=== PATIENT | male | born 1965 | race Caucasian/White ===

== ENCOUNTER 2016-07-24 11:51 | Emergency (ER) | payer MEDICARE ==
[~2016-07-24] VITALS: Ht 170.2 cm; Wt 59.0 kg
[2016-07-24 12:16] VITALS: BP 120/80
[2016-07-24] MEDS ORDERED: Ketorolac 60mg Inj IM ONE (13:00)
[2016-07-24] MEDS ORDERED: Lidocaine 1% MPF 10mg/ml 5ml INJ ONE (13:00)
--- NOTE | 2016-07-24 13:22 | Emergency Room Report ---
History of Present Illness General Chief Complaint: Skin Rash/Abscess Source: Patient (EMILY [email or web address]) Present Illness HPI 51-year-old male complains of abscess on left calf associated symptoms include red swollen tender bump on left calf with pustular drainage. No provoking symptoms or relieving factors states it is tender to touch. States that he may have been something that opened his skin that been got infected 2 weeks ago. Denies any fever, chills, nausea, vomiting, or rash. ([email or web address]) Allergies: Coded Allergies: No Known Allergies (Unverified , 07/24/16) Patient History Immunizations: other - Patient is unaware of immunization status Reviewed Nursing Documentation: PMH: Agreed, PSxH: Agreed (EMILY ROACH) Nursing Documentation-PMH Hx Cardiac Problems: No Hx Hypertension: Yes (EMILY [email or web address]) Review of Systems All Other Systems: negative except mentioned in HPI ([email or web address]) Physical Exam Vital Signs Date Time Temp Pulse Resp B/P Pulse Ox O2 Delivery O2 Flow Rate FiO2 07/24/16 12:10 98.2 82 16 120/80 98 Room Air Sp02 EP Interpretation: reviewed, normal General Appearance: no apparent distress, alert, GCS 15, non-toxic Head: normocephalic, atraumatic ENT: hearing grossly normal, no angioedema, normal voice Neck: full range of motion, supple/symm/no masses Respiratory: chest non-tender, lungs clear, normal breath sounds, speaking full sentences Cardiovascular #1: regular rate, rhythm, no edema Cardiovascular #2: 2+ dorsalis pedis (R), 2+ dorsalis pedis (L) Musculoskeletal: back normal, gait/station normal, normal range of motion Neurologic: alert, oriented x3, responsive, motor strength/tone normal, sensory intact, speech normal Psychiatric: judgement/insight normal, memory normal, mood/affect normal, no suicidal/homicidal ideation Skin: normal color, no rash, warm/dry, well hydrated, other - left calf with indurated fluctulent mass with central cresting TTP w/ local erythema w/o streaking. Lymphatic: no adenopathy (EMILY [email or web address].AAura) Procedures Incision and Drainage Incision and Drainage : Consent: Verbal Blade Size: 11 I & D Procedure: betadine prep Wound Location: lower extremity Wound's Depth, Shape: superficial Wound Explored: contaminated Irrigated w/ Saline (ccs): 50 Anesthesia: 1% Lidocaine Volume Anesthetic (ccs): 5 Splint Applied?: No Patient Tolerated: Well Complications: None (EMILY ROACH) Medical Decision Making PA Attestation Dr. Smith is my supervising physician with whom patient management has been discussed with. (EMILY ROACH) Diagnostic Impression: Primary Impression: Abscess ER Course Pt. presents to the ED c/o bump on leg Ddx considered but are not limited to abscess, cellulitis, insect bite Vital signs: are WNL, pt. is afebrile H&PE are most consistent with abscess ORDERS: Toradol 60 ED INTERVENTIONS: I&D. DISCHARGE: At this time pt. is stable for d/c to home. Will provide printed patient care instructions, and any necessary prescriptions. Care plan and follow up instructions have been discussed with the patient prior to discharge. ([email or web address]) Last Vital Signs Date Time Temp Pulse Resp B/P Pulse Ox O2 Delivery O2 Flow Rate FiO2 07/24/16 12:10 98.2 82 16 120/80 98 Room Air ([email or web address]) Last Vital Signs Date Time Temp Pulse Resp B/P Pulse Ox O2 Delivery O2 Flow Rate FiO2 07/24/16 15:12 98.2 82 16 120/80 98 Room Air (Fede Smith M.D.) Disposition: HOME, SELF-CARE Condition: Improved Scripts Naproxen* (NAPROXEN*) 500 Mg Tablet 500 MG ORAL TWICE A WEEK, #20 TAB 0 Refills Prov: EMILY ROACH P.A. 07/24/16 Trimethoprim/Sulfamethoxazole 160/800* (BACTRIM DS TABLET*) 1 Each Tablet 1 TAB ORAL TWICE A DAY for 10 Days, #14 TAB Prov: EMILY ROACH P.A. 07/24/16 Cephalexin* (KEFLEX*) 500 Mg Capsule 500 MG ORAL EVERY 12 HOURS, #14 CAP 0 Refills Prov: EMILY ROACH P.A. 07/24/16 Referrals: NON PHYSICIAN (PCP) EMILY ROACH 29, 2017 13:22 Fede Smith M.D. Jul 27, 2016 06:57
[2016-07-24] MEDS ORDERED: CEPHALEXIN500 MG ORAL (13:57)
[2016-07-24] MEDS ORDERED: BACTRIM DS TAB1 EAC1 ORAL (13:57)
[2016-07-24] MEDS ORDERED: NAPROXEN500 M2 ORAL (13:57)
[2016-07-24 14:27] VITALS: BP 119/73
[2016-07-24 15:12] VITALS: BP 120/80
== END 2016-07-24 15:12 | disposition home or self-care (01) ==
LOC: EMR 12:55
DX: L02.416 Cutaneous abscess of left lower limb (principal); I10 Essential (primary) hypertension
CPT/HCPCS: 10060; 96372

== ENCOUNTER 2017-03-07 19:37 | Emergency (ER) | payer MEDICARE ==
[~2017-03-07] VITALS: Ht 172.7 cm; Wt 77.1 kg
[~2017-03-07 19:37] MED LIST: BACTRIM DS TAB1 EAC1 ORAL; CEPHALEXIN500 MG ORAL; NAPROXEN500 M2 ORAL
[2017-03-07 19:45] VITALS: BP 133/91
[2017-03-07] MEDS ORDERED: ALBUTEROL SULF8.5 GM INH (19:49)
[2017-03-07] MEDS ORDERED: ADVAIR HFA 115-12 GM INH (19:49)
[2017-03-07] MEDS ORDERED: HYDROCHLOROTH12.5 M2 ORAL (19:49)
[2017-03-07] MEDS ORDERED: BENAZEPRIL HCL40 MG ORAL (19:49)
[2017-03-07] MEDS ORDERED: Bacitracin Oint UD TOPIC ONE (20:15)
[2017-03-07] MEDS ORDERED: BACTRIM DS TAB1 EAC1 ORAL (20:26)
[2017-03-07] MEDS ORDERED: CEPHALEXIN500 MG ORAL (20:26)
[2017-03-07 20:39] VITALS: BP 127/85
--- NOTE | 2017-03-07 22:16 | Emergency Room Report ---
History of Present Illness General Chief Complaint: Skin Rash/Abscess Source: Patient Present Illness HPI The patient is a 52-year-old male presenting for possible skin infection. States that he noticed a red lesion on the left inner thigh one week prior which has been growing in size. He states that he popped it at home and noticed a white discharge which recollected the next day. Pain is a 5/10 dull ache and does not radiate. He denies any fever or chills. He denies other symptoms Allergies: Coded Allergies: No Known Allergies (Unverified , 07/24/16) Patient History Past Medical History: see triage record Pertinent Family History: none Reviewed Nursing Documentation: PMH: Agreed, PSxH: Agreed Nursing Documentation-PMH Past Medical History: No History, Except For Hx Cardiac Problems: No - HIV Hx Hypertension: Yes Hx Asthma: Yes Review of Systems All Other Systems: negative except mentioned in HPI Physical Exam Vital Signs Date Time Temp Pulse Resp B/P (MAP) Pulse Ox O2 Delivery O2 Flow Rate FiO2 03/07/17 19:43 97.9 86 16 133/91 99 Room Air Sp02 EP Interpretation: reviewed, normal General Appearance: no apparent distress, alert, GCS 15, non-toxic Head: normocephalic, atraumatic Eyes: bilateral eye normal inspection, bilateral eye PERRL Musculoskeletal: back normal, gait/station normal, normal range of motion, non- tender Neurologic: alert, oriented x3, responsive, motor strength/tone normal, sensory intact, speech normal Psychiatric: judgement/insight normal, memory normal, mood/affect normal, no suicidal/homicidal ideation Skin: other - 3 cm in diameter circular abscess to L inner thigh. Central scab. No fluctuance. TTP Lymphatic: no adenopathy Medical Decision Making PA Attestation Dr. Harmon is my supervising physician. Patient management was discussed with my supervising physician Diagnostic Impression: Primary Impression: Abscess ER Course The patient is a 52-year-old male presenting for possible skin infection Differential diagnoses considered but not limited to: abscess, cellulitis, insect bite PE: NAD. Afebrile. There is a drained abscess of the L inner thigh. TTP. Central scab. No fluctuance. The area is cleaned and bacitracin applied with a dressing. The patient will be discharged home with a prescription for Bactrim DS and Keflex. ER precautions given. He will keep the area clean and dry. He will not perform drainage at home. Last Vital Signs Date Time Temp Pulse Resp B/P (MAP) Pulse Ox O2 Delivery O2 Flow Rate FiO2 03/07/17 20:39 97.9 82 20 127/85 99 Room Air Status: improved Disposition: HOME, SELF-CARE Condition: Improved Scripts Trimethoprim/Sulfamethoxazole 160/800* (BACTRIM DS TABLET*) 1 Each Tablet 1 TAB ORAL TWICE A DAY, #14 TAB Prov: ARTIS CHIRINOS 03/07/17 Cephalexin* (KEFLEX*) 500 Mg Capsule 500 MG ORAL EVERY 12 HOURS, #14 CAP 0 Refills Prov: ARTIS CHIRINOS.Carri. 03/07/17 Patient Instructions: Abscess Additional Instructions: I discussed my findings with the patient. All questions and concerns have been answered. Treatment and medication compliance have been addressed. I advised the patient that they need to follow up with PMD in 3-5 days. Return to ED if symptoms worsen, new symptoms arise, or if needed for any reason. Patient verbalized understanding of discharge instructions. ARTIS CHIRINOS Mar 07, 2017 22:16
== END 2017-03-07 20:39 | disposition home or self-care (01) ==
LOC: EMR 20:14
DX: L02.416 Cutaneous abscess of left lower limb (principal); I10 Essential (primary) hypertension
CPT/HCPCS: 99284

== ENCOUNTER 2017-09-25 14:59 | Emergency (ER) | payer MEDICARE, OTHER ==
[~2017-09-25] VITALS: Ht 177.8 cm; Wt 74.8 kg
[~2017-09-25 14:59] MED LIST changes: +ADVAIR HFA 115-12 GM INH; +ALBUTEROL SULF8.5 GM INH; +BENAZEPRIL HCL40 MG ORAL; +HYDROCHLOROTH12.5 M2 ORAL
[2017-09-25] MEDS ORDERED: Tetanus/Diptheria/Pertussis Vaccine 0.5ml Syr IM ONE (15:15)
[2017-09-25 15:16] VITALS: BP 103/68
[2017-09-25] MEDS ORDERED: Bacitracin Oint UD TOPIC ONE (15:45)
--- NOTE | 2017-09-25 16:21 | Emergency Room Report ---
History of Present Illness General Chief Complaint: Skin Rash/Abscess Present Illness HPI 52-year-old male presents to the emergency department complaining of several abscesses on the left forearm since last Monday. Patient reports pain is 9 out of 10 in severity reports some erythema. Patient states that one of the abscesses popped and drained and has healed on its own. Patient states that he has a history of HIV he takes his medications regularly has bilateral load is undetectable and his CD4 count is well above 800. Patient reports history of abscesses in the past. Patient denies IV drug use. Denies fevers, chills, nausea, vomiting. He reports he has a history to metals and he was cleaning near [place]link fence when he was punctured by a portion of it. Patient states he believes that this is the cause of his infection. He does not know when his last tetanus vaccination was.Denies CP, Palpitations, LOC, AMS, dizziness, Changes in Vision, Sensation, paresthesias, or a sudden severe headache. Allergies: Coded Allergies: No Known Allergies (Unverified , 07/24/16) Patient History Past Medical History: see triage record Past Surgical History: none Pertinent Family History: none Reviewed Nursing Documentation: PMH: Agreed; PSxH: Agreed Nursing Documentation-PMH Hx Cardiac Problems: No - HIV Hx Hypertension: Yes Hx Asthma: Yes Review of Systems All Other Systems: negative except mentioned in HPI Physical Exam Vital Signs Date Time Temp Pulse Resp B/P (MAP) Pulse Ox O2 Delivery O2 Flow Rate FiO2 09/25/17 15:06 97.9 68 20 103/68 100 Room Air 97.9 Sp02 EP Interpretation: reviewed, normal General Appearance: no apparent distress, alert, GCS 15, non-toxic Head: normocephalic, atraumatic ENT: hearing grossly normal, normal voice Neck: full range of motion Respiratory: lungs clear, normal breath sounds, speaking full sentences Cardiovascular #1: regular rate, rhythm, normal capillary refill Musculoskeletal: back normal, gait/station normal, normal range of motion, non- tender Neurologic: alert, oriented x3, responsive, motor strength/tone normal, sensory intact, speech normal, grossly normal Psychiatric: judgement/insight normal Skin: no rash, warm/dry, well hydrated, other - Multiple ( total of 3) absces' s in the left forearm with palpable fluctuance requiring incision and drainage. two of the abscesses are 1.5 cm in diameter, and the third is 1 cm in diameter. Lymphatic: no adenopathy Procedures Incision and Drainage Incision and Drainage #1: Consent: Verbal Site: Left Forearm Blade Size: 11 I & D Procedure: betadine prep, sterile drapes applied, sterile dressing applied Wound Location: upper extremity - left forearm Wound's Depth, Shape: superficial Wound Length (cm): 1 Wound Explored: contaminated Anesthesia: Lidocaine w/ Epi Volume Anesthetic (ccs): 1 Sling Applied?: No Patient Tolerated: Well Complications: None Incision and Drainage #2: Consent: Verbal Site: Left forearm Blade Size: 11 I & D Procedure: betadine prep, sterile drapes applied, sterile dressing applied Wound Location: upper extremity - Left Forearm Wound's Depth, Shape: superficial Wound Length (cm): 1 Wound Explored: contaminated - purulent d/c expressed. Anesthesia: Lidocaine w/ Epi Volume Anesthetic (ccs): 1 Splint Applied?: No Sling Applied?: No Patient Tolerated: Well Complications: None Incision and Drainage #3: Consent: Verbal Site: Left Forearm Blade Size: 11 I & D Procedure: betadine prep, sterile drapes applied, sterile dressing applied Wound Location: upper extremity - Left forearm Wound's Depth, Shape: superficial Wound Length (cm): 1 Wound Explored: contaminated - purulent d/c expressed. Anesthesia: Lidocaine w/ Epi Volume Anesthetic (ccs): 1 Splint Applied?: No Sling Applied?: No Patient Tolerated: Well Complications: None Progress purulent d/c expressed from all 3 incised abscesses. Medical Decision Making PA Attestation Dr. Mcpherson is my supervising Physician whom patient management has been discussed with. Diagnostic Impression: Primary Impression: Abscess Additional Impression: Abscess of multiple sites ER Course 52-year-old male presents to the emergency department complaining of several abscesses on the left forearm since last Monday. Patient reports pain is 9 out of 10 in severity reports some erythema. Patient states that one of the abscesses popped and drained and has healed on its own. Patient states that he has a history of HIV he takes his medications regularly has bilateral load is undetectable and his CD4 count is well above 800. Patient reports history of abscesses in the past. Patient denies IV drug use. Denies fevers, chills, nausea, vomiting. He reports he has a history to metals and he was cleaning near [place]link fence when he was punctured by a portion of it. Patient states he believes that this is the cause of his infection. He does not know when his last tetanus vaccination was.Denies CP, Palpitations, LOC, AMS, dizziness, Changes in Vision, Sensation, paresthesias, or a sudden severe headache. Ddx considered but are not limited to cellulitis, abscess, cystic acne, necrotizing fasciitis, insect bite. Vital signs: are WNL, pt. is afebrile H&PE are most consistent with : Multiple abscess in the left forearm with palpable fluctuance requiring incision and drainage. two of the abscesses are 1.5 cm in diameter, and the third is 1 cm in diameter. ORDERS: none required at this time, the diagnosis is clinical ED INTERVENTIONS: -I & D x 3 -- see each procedure note. - Tetanus -Bacitracin and sterile dressing is applied. DISCHARGE: At this time pt. is stable for d/c to home. Will provide printed patient care instructions, and any necessary prescriptions. Care plan and follow up instructions have been discussed with the patient prior to discharge. Last Vital Signs Date Time Temp Pulse Resp B/P (MAP) Pulse Ox O2 Delivery O2 Flow Rate FiO2 09/25/17 15:16 97.9 71 20 103/68 100 Room Air 97.9 Disposition: HOME, SELF-CARE Condition: Stable Scripts Ibuprofen* (MOTRIN*) 600 Mg Tablet 600 MG ORAL THREE TIMES A DAY, #20 TAB 0 Refills Prov: Wanda Talbot P.A. 09/25/17 Trimethoprim/Sulfamethoxazole 160/800* (BACTRIM DS TABLET*) 1 Each Tablet 1 TAB ORAL TWICE A DAY for 7 Days, #14 TAB Prov: Wanda Talbot P.A. 09/25/17 Cephalexin* (KEFLEX*) 500 Mg Capsule 500 MG ORAL EVERY 12 HOURS for 7 Days, #14 CAP 0 Refills Prov: Wanda Talbot P.A. 09/25/17 Bacitracin/Polymyxin B Sulfate (BACITRACIN-POLYMYXIN OINTMENT) 28.35 Gm Oint...g. 1 APPLIC TP BID, #28.3 GM Prov: Wanda Talbot P.A. 09/25/17 Referrals: NON PHYSICIAN (PCP) Patient Instructions: Abscess Additional Instructions: Take medications as directed. Follow up with a Primary Care Provider in 3-5 days, even if your symptoms have resolved. --Please review list of primary care clinics, if you do not already have a primary care provider Return sooner to ED if new symptoms occur, or current symptoms become worse. - Please note that this Emergency Department Report was dictated using [employer] claims supervisor technology software, occasionally this can lead to erroneous entry secondary to interpretation by the dictation equipment. Wanda Talbot Sep 25, 2017 16:21
[2017-09-25] MEDS ORDERED: BACITRACIN-P28.35 GM TP ×2 (16:22)
[2017-09-25] MEDS ORDERED: BACTRIM DS TAB1 EAC1 ORAL ×2 (16:22)
[2017-09-25] MEDS ORDERED: CEPHALEXIN500 MG ORAL ×2 (16:22)
[2017-09-25] MEDS ORDERED: IBUPROFEN600 MG ORAL (16:25)
[2017-09-25 16:33] VITALS: BP 103/68
== END 2017-09-25 16:35 | disposition home or self-care (01) ==
LOC: EMR 15:44
DX: L02.414 Cutaneous abscess of left upper limb (principal); Z23 Encounter for immunization; I10 Essential (primary) hypertension; J45.909 Unspecified asthma, uncomplicated; B20 Human immunodeficiency virus [HIV] disease
CPT/HCPCS: 10060; 90471; 90715; 99284

== ENCOUNTER 2018-02-19 22:37 | Emergency (ER) | payer MEDICARE ==
[~2018-02-19] VITALS: Ht 177.8 cm; Wt 74.8 kg
[~2018-02-19 22:37] MED LIST changes: +BACITRACIN-P28.35 GM TP; +IBUPROFEN600 MG ORAL
[2018-02-19 22:42] VITALS: BP 123/77
[2018-02-19] MEDS ORDERED: GENVOYA TABLET1 EACH PO (22:46)
[2018-02-19] MEDS ORDERED: CEPHALEXIN500 MG ORAL (23:31)
[2018-02-19] MEDS ORDERED: BACTRIM DS TAB1 EAC1 ORAL (23:31)
[2018-02-19 23:34] VITALS: BP 123/77
--- NOTE | 2018-02-20 01:17 | Emergency Room Report ---
History of Present Illness General Chief Complaint: Skin Rash/Abscess Source: Patient Present Illness HPI Patient presents with complaints of 2 different lesions in the upper arm One on the left upper arm One in the right upper arm Patient is HIV-positive status Denies any fevers Denies any neck pain or photophobia denies any chest pain Patient reports that he might have come in contact with some metal and he does have some allergies to metal Allergies: Uncoded Allergies: METAL (Allergy, Unknown, 02/19/18) Patient History Past Medical History: see triage record Pertinent Family History: none Reviewed Nursing Documentation: PMH: Agreed; PSxH: Agreed Nursing Documentation-PMH Hx Cardiac Problems: No - HIV Hx Hypertension: Yes Hx Asthma: Yes Review of Systems All Other Systems: negative except mentioned in HPI Physical Exam Vital Signs Date Time Temp Pulse Resp B/P (MAP) Pulse Ox O2 Delivery O2 Flow Rate FiO2 02/19/18 22:40 98.2 76 16 123/77 95 Room Air 98.2 Sp02 EP Interpretation: reviewed, normal General Appearance: well appearing, no apparent distress Head: normocephalic, atraumatic ENT: hearing grossly normal, normal pharynx Neck: supple Respiratory: chest non-tender, lungs clear Cardiovascular #1: regular rate, rhythm Gastrointestinal: non tender, soft Genitourinary: no CVA tenderness Musculoskeletal: normal inspection Neurologic: alert, oriented x3 Skin: other - Small palpable region left forearm approximately half by half centimeter, mild erythema, no obvious fluctuance, also a quarter by quarter centimeter region palpable right palmar aspect of the forearm no obvious erythema no flaring of rash Lymphatic: no adenopathy Medical Decision Making Diagnostic Impression: Primary Impression: Rash and other nonspecific skin eruption Additional Impression: pustule ER Course Patient's findings are consistent with early pustule I do not appreciate any obvious large areas for incision Patient is provided with instructions regarding early abscess Initial antibiotic coverage will be initiated and patient requires close follow- up Last Vital Signs Date Time Temp Pulse Resp B/P (MAP) Pulse Ox O2 Delivery O2 Flow Rate FiO2 02/19/18 23:34 98.2 76 16 123/77 95 Room Air 98.2 Status: unchanged Disposition: HOME, SELF-CARE Condition: Stable Scripts Trimethoprim/Sulfamethoxazole 160/800* (BACTRIM DS TABLET*) 1 Each Tablet 1 TAB ORAL Q12H, #14 TAB 0 Refills Prov: Anastasiya Porter DO 02/19/18 Cephalexin* (KEFLEX*) 500 Mg Capsule 500 MG ORAL EVERY 6 HOURS for 7 Days, CAP Prov: Anastasiya Porter DO 02/19/18 Referrals: [facility],REFERRING (PCP) Patient Instructions: Rash, Abscess, [id number] Additional Instructions: Patient is provided with the discharge instructions notified to follow up with primary doctor in the next 2-3 days otherwise return to the er with any worsening symptoms. Please note that this report is being documented using [employer] technology. This can lead to erroneous entry secondary to incorrect interpretation by the dictating instrument. Anastasiya Porter DO Feb 20, 2018 01:17
== END 2018-02-19 23:35 | disposition home or self-care (01) ==
LOC: EMR 23:06
DX: L08.9 Local infection of the skin and subcutaneous tissue, unspecified (principal); R21 Rash and other nonspecific skin eruption; I10 Essential (primary) hypertension; J45.909 Unspecified asthma, uncomplicated
CPT/HCPCS: 99282

== ENCOUNTER 2018-09-07 19:36 | Inpatient (IN) | payer MEDICARE ==
[~2018-09-07] VITALS: Ht 177.8 cm; Wt 77.1 kg
[~2018-09-07 19:36] MED LIST changes: +GENVOYA TABLET1 EACH PO
[2018-09-07 20:20] VITALS: BP 118/79
--- NOTE | 2018-09-07 20:20 | NUR ---
ED Nurse Note: pt walked in c/o pain and swelling on bilateral legs x 2 days, pt stated he was hospitalized on aug 01 for the same reason.
[2018-09-07] MEDS ORDERED: Piperacillin/Tazobactam 4.5 GM in NS 110 ML IVPB ONE (20:45)
[2018-09-07] MEDS ORDERED: Vancomycin 1.5 GM in NS 275 ML IVPB ONE (20:45)
[2018-09-07 21:25] LABS: ANION GAP 10 mmol/L (5-15); BLOOD UREA NITROGEN 27 mg/dL (7-18); CALCIUM 8.9 MG/DL (8.5-10.1); CARBON DIOXIDE 22 MMOL/L (21-32); CHLORIDE 104 MMOL/L (98-107); POTASSIUM 3.7 MMOL/L (3.5-5.1); SODIUM 136 MMOL/L (136-145)
[2018-09-07 21:29] LABS: ALANINE AMINOTRANSFERASE 20 U/L (12-78); ALBUMIN 3.2 G/DL (3.4-5.0); ALBUMIN/GLOBULIN RATIO 0.8 (1.0-2.7); ALKALINE PHOSPHATASE 117 U/L (46-116); ASPARTATE AMINO TRANSFERASE 24 U/L (15-37); BILIRUBIN,TOTAL 0.4 MG/DL (0.2-1.0)
[2018-09-07 21:32] LABS: EOSINOPHILS % (AUTO) 5.8 % (0.0-3.0); HEMATOCRIT 35.2 % (42.0-52.0); HEMOGLOBIN 11.4 G/DL (14.2-18.0); LYMPHOCYTES % (AUTO) 20.4 % (20.0-45.0); MEAN CORPUSCULAR VOLUME 92 FL (80-99); MONOCYTES % (AUTO) 6.7 % (1.0-10.0); NEUTROPHILS % (AUTO) 66.1 % (45.0-75.0); PLATELET COUNT 314 K/UL (150-450); RED BLOOD COUNT 3.84 M/UL (4.70-6.10); RED CELL DISTRIBUTION WIDTH 19.5 % (11.6-14.8); WHITE BLOOD COUNT 14.8 K/UL (4.8-10.8)
--- NOTE | 2018-09-07 22:10 | NUR ---
NURSE NOTES: Received a report from YAO Dias. Waiting for pt's arrival.
--- NOTE | 2018-09-07 22:10 | NUR ---
ED Nurse Note: report given to YAO Allen
[2018-09-07 22:23] LABS: APPEARANCE,URINE CLEAR; BILIRUBIN, URINE NEGATIVE (NEGATIVE); COLOR,URINE PALE YELLOW; GLUCOSE, URINE (UA) NEGATIVE (NEGATIVE); KETONES,URINE NEGATIVE (NEGATIVE); LEUKOCYTE ESTERASE ,URINE NEGATIVE (NEGATIVE); NITRITE,URINE NEGATIVE (NEGATIVE); PH,URINE 6 (4.5-8.0); PROTEIN,URINE NEGATIVE (NEGATIVE); UROBILINOGEN,URINE 1 MG/DL (0.0-1.0)
--- NOTE | 2018-09-07 22:49 | Emergency Room Report ---
History of Present Illness General Chief Complaint: Edema Source: Patient Present Illness HPI Patient presents emergency department today complaining of bilateral lower extremity swelling. Patient has history HIV. He states he was admitted at [facility] given IV antibiotics and discharge without antibiotics outpatient. States that the legs has become more swollen and red and edematous and he thinks he has infection. He denies any fever cough runny nose or sore throat. Symptoms noted to moderate to severe. Patient states that he has HIV but he is undetectable viral load.. No other modifying factors. No other associated signs and symptoms. No other complaints were noted. Allergies: Uncoded Allergies: METAL (Allergy, Unknown, 02/19/18) Patient History Past Medical History: HTN, asthma, HIV Past Surgical History: none Pertinent Family History: none Social History: Denies: smoking, alcohol use, drug use Reviewed Nursing Documentation: PMH: Agreed; PSxH: Agreed Nursing Documentation-PMH Hx Cardiac Problems: No - HIV Hx Hypertension: Yes Hx Asthma: Yes Review of Systems All Other Systems: negative except mentioned in HPI Physical Exam Vital Signs Date Time Temp Pulse Resp B/P (MAP) Pulse Ox O2 Delivery O2 Flow Rate FiO2 09/07/18 19:52 98.2 82 16 118/79 94 Room Air Sp02 EP Interpretation: reviewed, normal General Appearance: normal inspection, well appearing, no apparent distress, alert Head: atraumatic Eyes: bilateral eye normal inspection ENT: normal ENT inspection, hearing grossly normal, normal voice Neck: normal inspection, full range of motion, supple, no bony tend Respiratory: normal inspection, lungs clear, normal breath sounds, no respiratory distress, no retraction, no wheezing Cardiovascular #1: regular rate, rhythm, no edema Gastrointestinal: normal inspection, normal bowel sounds, non tender, soft, no guarding, no hernia Genitourinary: no CVA tenderness Musculoskeletal: swelling - Bilateral lower extremity, other - redness in bilateral lower extremity Neurologic: normal inspection, alert, responsive, speech normal Psychiatric: normal inspection, judgement/insight normal, mood/affect normal Skin: other - Cellulitis lower extremity, edema of the legs Medical Decision Making Diagnostic Impression: Primary Impression: Cellulitis Additional Impression: Edema ER Course Patient presents emergency department today complaining of leg pain leg swelling. Differential considerations acute CHF, cellulitis, dependent edema, dermatitis just name a few. Patient's exam is consistent with edema and cellulitis. I felt that given patient's comp located medical history patient would benefit from admission. We'll start patient on Lasix as well as IV antibiotics. Case discussed with Dr. Phan for admission. Labs Test 09/07/18 21:01 09/07/18 21:38 White Blood Count 14.8 K/UL (4.8-10.8) Red Blood Count 3.84 M/UL (4.70-6.10) Hemoglobin 11.4 G/DL (14.2-18.0) Hematocrit 35.2 % (42.0-52.0) Mean Corpuscular Volume 92 FL (80-99) Mean Corpuscular Hemoglobin 29.7 PG (27.0-31.0) Mean Corpuscular Hemoglobin Concent 32.5 G/DL (32.0-36.0) Red Cell Distribution Width 19.5 % (11.6-14.8) Platelet Count 314 K/UL (150-450) Mean Platelet Volume 7.0 FL (6.5-10.1) Neutrophils (%) (Auto) 66.1 % (45.0-75.0) Lymphocytes (%) (Auto) 20.4 % (20.0-45.0) Monocytes (%) (Auto) 6.7 % (1.0-10.0) Eosinophils (%) (Auto) 5.8 % (0.0-3.0) Basophils (%) (Auto) 1.0 % (0.0-2.0) Sodium Level 136 MMOL/L (136-145) Potassium Level 3.7 MMOL/L (3.5-5.1) Chloride Level 104 MMOL/L (98-107) Carbon Dioxide Level 22 MMOL/L (21-32) Anion Gap 10 mmol/L (5-15) Blood Urea Nitrogen 27 mg/dL (7-18) Creatinine 1.0 MG/DL (0.55-1.30) Estimat Glomerular Filtration Rate > 60 mL/min (>60) Glucose Level 98 MG/DL (74-106) Lactic Acid Level 0.80 mmol/L (0.4-2.0) Calcium Level 8.9 MG/DL (8.5-10.1) Total Bilirubin 0.4 MG/DL (0.2-1.0) Aspartate Amino Transf (AST/SGOT) 24 U/L (15-37) Alanine Aminotransferase (ALT/SGPT) 20 U/L (12-78) Alkaline Phosphatase 117 U/L (46-116) Total Protein 7.2 G/DL (6.4-8.2) Albumin 3.2 G/DL (3.4-5.0) Globulin 4.0 g/dL Albumin/Globulin Ratio 0.8 (1.0-2.7) Urine Color Pale yellow Urine Appearance Clear Urine pH 6 (4.5-8.0) Urine Specific [place] 1.015 (1.005-1.035) Urine Protein Negative (NEGATIVE) Urine Glucose (UA) Negative (NEGATIVE) Urine Ketones Negative (NEGATIVE) Urine Blood Negative (NEGATIVE) Urine Nitrite Negative (NEGATIVE) Urine Bilirubin Negative (NEGATIVE) Urine Urobilinogen 1 MG/DL (0.0-1.0) Urine Leukocyte Esterase Negative (NEGATIVE) Last Vital Signs Date Time Temp Pulse Resp B/P (MAP) Pulse Ox O2 Delivery O2 Flow Rate FiO2 09/07/18 22:09 98.2 82 16 121/79 96 Room Air Status: improved Disposition: ADMITTED INPATIENT Condition: Serious Referrals: NON PHYSICIAN (PCP) Wilfrid Scherer MD Sep 07, 2018 22:49
--- NOTE | 2018-09-07 23:00 | NUR ---
ED Nurse Note: pt trasnferred to [facility] unit with JUNG Burnham. pt vss at the moment, pt is on room air. pt shows no acute distress. pt took all belongings
--- NOTE | 2018-09-07 23:12 | NUR ---
NURSE NOTES: Pt has arrived in the unit. Pt is in stable condition. AAOX4. Able to make needs known. No respiratory distress noted. On room air. IV site is patent and intact. Pt is non compliant. He refused the vital signs and all of the assessments including skin assessment. He also refused to check his belongings. Charge Nurse Lucila made aware. Bed in lowest position. Call light within reach. Will continue to monitor.
--- NOTE | 2018-09-07 23:30 | NUR ---
NURSE NOTES: Pt does not remember the dose for his home med, Hydrochlorothiazide.
[2018-09-08] VITALS: BP 117/52
[2018-09-08] MEDS ORDERED: Albuterol 90mcg Inhaler 8gm INH SCH
[2018-09-08] MEDS ORDERED: Albuterol 90mcg Inhaler 8gm INH PRN (00:45)
[2018-09-08 04:00] VITALS: BP 131/83
[2018-09-08] MEDS ORDERED: ceFAZolin 1gm/50ml Premix 50 ML IV SCH (06:00)
--- NOTE | 2018-09-08 06:00 | NUR ---
NURSE NOTES: Pt is now stating that he's homeless and his cats are inside his car at the parking lot. Pt refused the swabs. Charge Nurse Lucila made aware.
--- NOTE | 2018-09-08 06:00 | NUR ---
NURSE NOTES: Pt refused blood draw.
--- NOTE | 2018-09-08 07:30 | NUR ---
NURSE NOTES: Endorsed to David Mena RN, about the Genvoya, Advair, and Hydrochlorothiazide. Tiffany SAMAYOA also mentioned to YAO Hernandez, about the pt's cats are inside his car. David SAMAYOA is aware.
--- NOTE | 2018-09-08 07:35 | NUR ---
HAND-OFF: Report given to David Mena RN.
[2018-09-08 08:00] VITALS: BP 125/79
[2018-09-08 08:10] LABS: BASOPHILS % (AUTO) 0.7 % (0.0-2.0); EOSINOPHILS % (AUTO) 5.6 % (0.0-3.0); HEMOGLOBIN 12.2 G/DL (14.2-18.0); LYMPHOCYTES % (AUTO) 20.2 % (20.0-45.0); MEAN CORPUSCULAR VOLUME 91 FL (80-99); MONOCYTES % (AUTO) 8.6 % (1.0-10.0); NEUTROPHILS % (AUTO) 64.9 % (45.0-75.0); PLATELET COUNT 297 K/UL (150-450); RED BLOOD COUNT 4.17 M/UL (4.70-6.10); WHITE BLOOD COUNT 12.9 K/UL (4.8-10.8)
[2018-09-08 08:25] LABS: ANION GAP 8 mmol/L (5-15); BLOOD UREA NITROGEN 26 mg/dL (7-18); CALCIUM 9.2 MG/DL (8.5-10.1); CARBON DIOXIDE 26 MMOL/L (21-32); CHLORIDE 101 MMOL/L (98-107); CREATININE 1.2 MG/DL (0.55-1.30); POTASSIUM 3.5 MMOL/L (3.5-5.1); SODIUM 135 MMOL/L (136-145)
[2018-09-08] MEDS ORDERED: Vancomycin 1gm in D5W 275ml IVPB SCH (09:00)
[2018-09-08] MEDS ORDERED: Heparin 5000 units/ml inj SUBQ SCH (09:00)
--- NOTE | 2018-09-08 11:30 | History and Physical Report ---
DATE OF ADMISSION: 09/07/2018 REASON FOR ADMISSION: Cellulitis. HISTORY OF PRESENT ILLNESS: The patient is a 53-year-old male presents with lower extremity swelling and erythema. The patient with history of HIV. The patient apparently was admitted to [facility] and given IV antibiotics and discharged without further outpatient antibiotics. The patient noted the legs became more swollen and red and now readmitted for similar findings. The patient notes that his HIV is under adequate control at this time. PAST MEDICAL HISTORY: Notable for hypertension, asthma, HIV, and recent cellulitis. FAMILY HISTORY: Noncontributory. SOCIAL HISTORY: Nonsmoker and nondrinker. No IV drugs. REVIEW OF SYSTEMS: Otherwise negative. PHYSICAL EXAMINATION: GENERAL: A well-developed male, otherwise comfortable. VITAL SIGNS: Stable, blood pressure 127/79, pulse 75, respirations 17, and saturations 99%. HEENT: Negative. NECK: Supple. LUNGS: Fairly clear and symmetric. CARDIAC: Normal S1, S2. Regular rate and rhythm without murmurs, rubs, or gallops. ABDOMEN: Soft, nontender, nondistended. EXTREMITIES: Noted lower extremity edema and erythema. NEUROLOGIC: Grossly nonfocal. LABORATORY DATA: Reviewed. Electrolytes fairly normal. BUN 26, creatinine 1.2. White cell count is elevated at 14.8, currently 12.9. IMPRESSION: Lower extremity cellulitis, lower extremity edema, HIV, hypertension. RECOMMENDATIONS: Supportive care. IV vancomycin. IV Ancef. ID evaluation. Followup for change. Elevate and discharge once improved. Kings Phan M.D. DR: LALITHA JOB#: [id number] CC:
--- NOTE | 2018-09-08 12:32 | NUR ---
NURSE NOTES: pt left AMA. pt signed AMA and homeless consent form. all belongings given to pt but refused to be sign belonging lists. Dr. chapman informed and made aware.
--- NOTE | 2018-09-08 16:45 | Consultation ---
DATE OF CONSULTATION: 09/08/2018 INFECTIOUS DISEASES CONSULTATION CONSULTING PHYSICIAN: James Guo M.D. REFERRING PHYSICIAN: Kings Phan M.D. REASON FOR CONSULTATION: Leg cellulitis. HISTORY OF PRESENTING ILLNESS: This is a 53-year-old gentleman with history of HIV, T-cell count of 1084, viral load undetectable, history of PCP, who states he came in from [facility] and was found to have leg cellulitis and he states he did not receive any antibiotics there. He comes in with increasing leg pain, swelling, and redness. An Infectious Diseases consultation has been obtained for antibiotics. PAST MEDICAL HISTORY: 1. History of HIV, T-cell count of 1084, viral load undetectable. 2. History of hypertension. 3. History of asthma. 4. History of PCP. No history of syphilis, gonorrhea, or chlamydia. No history of hepatitis A, B, or C. SOCIAL HISTORY: He is a smoker. He does not drink alcohol. 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 FAMILY HISTORY: Noncontributory. REVIEW OF SYSTEMS: RESPIRATORY: He had fever and chills. No cough, shortness of breath, or chest pain. CARDIAC: No chest pain. No palpitations. No dizziness. No syncope. GASTROINTESTINAL: No nausea. No vomiting. No abdominal pain or diarrhea. MUSCULOSKELETAL: He complains of leg pain. MEDICATIONS: As an inpatient, he is on IV vancomycin, subcutaneous heparin, benazepril, hydrochlorothiazide, ibuprofen, Ancef, albuterol, Tylenol. ALLERGIES: 1. Penicillin which produces hives. 2. Shellfish. PHYSICAL EXAMINATION: VITAL SIGNS: Temperature of 98.2, T-max of 99.2, pulse of 75, respiratory rate 17, blood pressure 125/79, O2 saturation of 99%. HEENT: Pupils equally reactive to light and accommodation. Mouth appears clean without thrush. NECK: Supple. No adenopathy. No JVD. CARDIOVASCULAR SYSTEM: Regular rate and rhythm. No murmurs. LUNGS: Clear to auscultation bilaterally. No crackles. No wheezes. ABDOMEN: Soft and nontender. No organomegaly. EXTREMITIES: No cyanosis, no clubbing, no edema. Bilateral redness of the legs noted with some dry areas. LABORATORIES: White count of 12.9 today, white count of 14.8 yesterday, hemoglobin 12.2, hematocrit 38, MCV 91, and platelet count of 297,000 with neutrophils of 64%. Sodium 135, potassium 3.5, chloride 101, bicarbonate 26, BUN 26, creatinine 1.2, glucose 105, calcium 9.2, total bilirubin 0.4, AST 24, ALT 20, alkaline phosphatase 117, total protein 7.2, albumin 3.2. UA is showing nitrite negative, bilirubin negative, LE negative. ASSESSMENT: 1. This is a 53-year-old gentleman with history of HIV, T-cell count of 1084, viral load undetectable, hypertension, who comes in with bilateral lower extremity swelling, redness, and pain and is consistent with cellulitis bilaterally. 2. History of PCP. 3. History of hypertension. 4. Asthma. PLAN: 1. Continue IV vancomycin. 2. We will recommend leg elevation. 3. Discontinue Ancef. 4. We will follow up the patient clinically. I would like to thank Dr. Phan for this consultation. Digna Guo M.D. DR: Billy JOB#: [id number] CC: Kings Phan M.D.; Fax#: [phone]
--- NOTE | 2018-09-09 20:45 | Discharge Summary ---
Discharge Summary Discharge Summary _ DATE OF ADMISSION: 09/07/2018 DATE OF DISCHARGE: 09/08/2018 Patient left AGAINST MEDICAL ADVICE REASON FOR ADMISSION: 53 years old male with past medical history of hypertension, asthma, HIV status ( T-cell count 1084, viral load undetectable), history of PCP, presented with lower extremity swelling and erythema. Patient reported recent admission to [facility], where he was treated with IV antibiotic and subsequently discharged without further outpatient antibiotics. Patient reported that his leg became more swollen and red. Patient presented to emergency department for further evaluation and management. Upon evaluation laboratory workup revealed leukocytosis with WBC 14.8, hemoglobin 11.4, hematocrit 35.2. Chemistry was unremarkable. Lactic acid 0.8. Urinalysis unremarkable. Patient admitted for lower extremity cellulitis. CONSULTANTS: ID specialist Dr. Guo HOSPITAL COURSE: Patient admitted to medical surgical floor. Patient started on empiric antibiotics. R ID specialist and evaluated patient. Patient was continued on IV vancomycin. Leg elevation was implemented. DVT Blood pressure was managed with FRANKLIN inhibitor and hydrochlorothiazide, remained stable. DVT prophylaxis provided. Patient decided to sign AGAINST MEDICAL ADVICE. The risks and consequences of signing AGAINST MEDICAL ADVICE were discussed with patient in detail. Patient verbalized understanding, nevertheless signed AMA form and left. FINAL DIAGNOSES: Bilateral lower extremity cellulitis HIV status Asthma History of PCP Hypertension History of PCP I have been assigned to dictate discharge summary for this account. I was not involved in the patient's management. Ansley Reyna NP Sep 09, 2018 20:45
== END 2018-09-08 12:30 | disposition left against medical advice (07) | DRG 603 ==
LOC: EMR 21:00 → 4E 21:19 → EDBEDREQ 22:01
DX: L03.116 Cellulitis of left lower limb (principal); B20 Human immunodeficiency virus [HIV] disease; L03.115 Cellulitis of right lower limb; I10 Essential (primary) hypertension; J45.909 Unspecified asthma, uncomplicated; F17.200 Nicotine dependence, unspecified, uncomplicated
CPT/HCPCS: 36415; 80048; 80053; 81003; 83605; 85025; 87040; 94664; 96365; 96368; 96375; 99285

== ENCOUNTER 2019-02-01 09:39 | Emergency (ER) | payer MEDICARE ==
[~2019-02-01] VITALS: Ht 172.7 cm; Wt 74.8 kg
[2019-02-01] MEDS ORDERED: METHYLPHENIDATE10 M3 PO (10:01)
[2019-02-01 10:02] VITALS: BP 156/109
--- NOTE | 2019-02-01 10:04 | NUR ---
ED Nurse Note: pt A&OX4 speaking in clear sentences here for med refill awaiting elizabethd papo.
--- NOTE | 2019-02-01 10:25 | Emergency Room Report ---
History of Present Illness General Chief Complaint: Medication Refill Source: Patient Present Illness HPI Patient has a history of ADHD. He recently was referred to a new psychiatrist. He is unable to see that physician for 2 weeks. He is requesting a refill of methylphenidate. He states he takes 20 mg 3 times a day. When he starts to get low on his medication he spaces this out. Is been 3 days since his last taken a dose. Denies major depression or suicidal ideation at this time. The patient states he is stable on his HIV medication. No fevers, chills, sore throat, chest pain, palpitations, nausea, vomiting, diarrhea, dysuria, abdominal pain, shortness of breath, joint pain, rashes, visual changes, headache. Allergies: Coded Allergies: SHELLFISH DERIVED (Verified Allergy, Severe, hives, sob, 02/01/19) PENICILLINS (Verified Allergy, Intermediate, rashes, 02/01/19) Uncoded Allergies: METAL (Allergy, Unknown, 02/19/18) Patient History Past Medical History: see triage record Social History: Reports: smoking Social History Narrative Disabled Reviewed Nursing Documentation: PMH: Agreed; PSxH: Agreed Nursing Documentation-PMH Past Medical History: No History, Except For Hx Cardiac Problems: No - HIV Hx Hypertension: Yes Hx Asthma: Yes Review of Systems All Other Systems: negative except mentioned in HPI Physical Exam Vital Signs Date Time Temp Pulse Resp B/P (MAP) Pulse Ox O2 Delivery O2 Flow Rate FiO2 02/01/19 09:57 98.4 83 16 156/109 (125) 96 Room Air Sp02 EP Interpretation: reviewed, normal General Appearance: well appearing, no apparent distress, GCS 15 Head: normocephalic Eyes: bilateral eye normal inspection, bilateral eye PERRL ENT: moist mucus membranes Neck: supple Respiratory: speaking full sentences Cardiovascular #1: regular rate, rhythm Cardiovascular #2: 2+ radial (R) Gastrointestinal: normal inspection, normal bowel sounds, non tender Musculoskeletal: digits/nails normal, gait/station normal, normal range of motion Neurologic: alert, oriented x3, grossly normal Psychiatric: mood/affect normal, no suicidal/homicidal ideation Skin: normal inspection Medical Decision Making Diagnostic Impression: Primary Impression: ADHD Qualified Codes: F90.9 - Attention-deficit hyperactivity disorder, unspecified type Additional Impressions: Immunosuppression Encounter for medication refill ER Course Patient presents with ADHD history requesting methylphenidate refill. Psychiatrically the patient is stable at this time. He also has a history of HIV and claims he is stable on that medication at this time. A prescription is given for less than what he allegedly takes however amount that should last him for the 2 weeks in order to get his own physician. Patient was advised that this was not an appropriate place to refill the prescription for methylphenidate. Patient stable for outpatient observation and treatment. Last Vital Signs Date Time Temp Pulse Resp B/P (MAP) Pulse Ox O2 Delivery O2 Flow Rate FiO2 02/01/19 10:40 98.4 16 150/99 96 Room Air 02/01/19 09:57 83 Status: unchanged Disposition: HOME, SELF-CARE Condition: Stable Scripts Methylphenidate Hcl* (RITALIN*) 10 Mg Tablet 20 MG ORAL DAILY, #14 TAB 0 Refills Prov: Fede Smith MD 02/01/19 Fede Smith MD Feb 01, 2019 10:25
[2019-02-01] MEDS ORDERED: RITALIN10 MG ORAL (10:26)
--- NOTE | 2019-02-01 10:44 | NUR ---
ER DISCHARGE NOTE: Patient is cleared to be discharged per ERMD, pt is aox4, on room air, with stable vital signs. pt was given dc and prescription instructions, pt was able to verbalize understanding, pt id band removed without complications. pt is able to ambulate with steady gait. pt took all belongings.
== END 2019-02-01 10:49 | disposition home or self-care (01) ==
LOC: EMR 10:43
DX: Z76.0 Encounter for issue of repeat prescription (principal); F90.9 Attention-deficit hyperactivity disorder, unspecified type; I10 Essential (primary) hypertension; J45.909 Unspecified asthma, uncomplicated
CPT/HCPCS: 99282